=== PATIENT | female | born 1985 | race Asian ===

== ENCOUNTER 2017-06-12 00:45 | Inpatient (IN) | payer SELFPAY ==
[~2017-06-12] VITALS: Ht 159 cm; Wt 59.0 kg
[2017-06-12] MEDS ORDERED: LACTATED RINGERS 1,000 ML IV SCH (02:27)
[2017-06-12 02:35] VITALS: BP 96/66
[2017-06-12] MEDS ORDERED: PNV1TABL8 PO (02:38)
[2017-06-12] MEDS ORDERED: INFLUENZA VIRUS VACCINE QUAD 0.5 ML SYR IMVAC SCH (02:40)
[2017-06-12 02:56] LABS: APPEARANCE,URINE SL CLOUDY (CLEAR); BILIRUBIN,URINE NEGATIVE (NEGATIVE); BLOOD, URINE NEGATIVE (NEGATIVE); COLOR,URINE YELLOW (YELLOW); LEUKOCYTE ESTERASE ,URINE NEGATIVE (NEGATIVE); NITRITE, URINE NEGATIVE (NEGATIVE); PH,URINE 7.5 (5.0-9.0); UGLUCOSE NEGATIVE (NEGATIVE)
[2017-06-12 02:58] LABS: BASOPHILS # (AUTO) 0.2 K/uL (0.00-0.22); BASOPHILS % (AUTO) 1.8 % (0.0-2.0); EOSINOPHILS # (AUTO) 0.4 K/uL (0-0.4); EOSINOPHILS % (AUTO) 4.6 % (0.0-4.0); HEMATOCRIT 35.1 % (36-48); HEMOGLOBIN 11.1 g/dL (12.0-16.0); LYMPHOCYTES # (AUTO) 1.8 K/uL (2.5-16.5); LYMPHOCYTES % (AUTO) 19.6 % (20.5-51.1); MEAN CORPUSCULAR HEMOGLOBIN 29 pg (27-31); MEAN CORPUSCULAR HGB CONC 32 g/dL (33-37); MEAN CORPUSCULAR VOLUME 91 fL (80-94); MONOCYTES # (AUTO) 0.5 K/uL (0.8-1.0); MONOCYTES % (AUTO) 4.9 % (1.7-9.3); NEUTROPHILS # (AUTO) 6.3 K/uL (1.8-7.7); NEUTROPHILS % (AUTO) 69.1 % (42.2-75.2); PLATELET COUNT (AUTO) 199 K/uL (140-450); RED BLOOD CELL COUNT(AUTO) 3.88 MIL/uL (4.20-5.40); WHITE BLOOD COUNT (AUTO) 9.2 K/uL (4.8-10.8)
[2017-06-12 03:05] LABS: ALBUMIN 2.6 g/dL (3.4-5.0); ANION GAP 11.5 (8-16); CARBON DIOXIDE 26.5 mmol/L (21-32); CREATININE 0.5 mg/dL (0.6-1.3); TOTAL BILIRUBIN 0.6 mg/dL (0.0-1.0)
[2017-06-12] MEDS ORDERED: ePHEDrine 50 MG/ML VIAL IV ONE (05:55)
[2017-06-12] MEDS ORDERED: ONDANSETRON 4 MG/2 ML VIAL IVP ONE (05:55)
[2017-06-12] MEDS ORDERED: METHYLERGONOVINE 0.2 MG/ML AMP ONE (05:58)
[2017-06-12] MEDS ORDERED: TRIAMCINOLONE 10 MG/ML 5ML VIAL ONE (05:58)
[2017-06-12] MEDS ORDERED: OXYTOCIN 10 UNITS/ML VIAL ONE (05:58)
[2017-06-12] MEDS ORDERED: CITRIC ACID/SODIUM CITRATE 30 ML UDC ONE ×2 (06:08→06:10)
[2017-06-12] MEDS ORDERED: ceFAZolin 1,000 MG VIAL IVP ONE (06:10)
[2017-06-12] MEDS ORDERED: ceFAZolin 1,000 MG VIAL ONE (06:11)
[2017-06-12] MEDS ORDERED: MIDAZOLAM 2 MG/2 ML VIAL ONE (06:11)
[2017-06-12] MEDS ORDERED: KETAMINE 500 MG/5 ML VIAL ONE (06:11)
[2017-06-12] MEDS ORDERED: fentaNYL 0.05 MG/ML VIAL ONE (06:11)
[2017-06-12] MEDS ORDERED: MORPHINE PRES FREE 10 MG/10 ML AMP IV ONE (06:12)
[2017-06-12] MEDS ORDERED: TRIMETHOBENZAMIDE 200 MG/2 ML SYR IM PRN (06:45)
[2017-06-12] MEDS ORDERED: oxyCODONE/APAP 5/325 MG 1 TAB TAB PO PRN (06:45)
[2017-06-12] MEDS ORDERED: HYDROcodone/APAP 5/325 MG 1 TAB TAB PO PRN (06:45)
[2017-06-12] MEDS ORDERED: MEASLES, MUMPS, AND RUBELLA 1 VIAL SQVAC PRN (06:45)
[2017-06-12] MEDS ORDERED: SIMETHICONE 80 MG TAB.CHEW PO PRN (06:45)
[2017-06-12] MEDS ORDERED: TEMAZEPAM 15 MG CAP PO PRN (06:45)
[2017-06-12] MEDS ORDERED: METHYLERGONOVINE 0.2 MG/ML AMP IM PRN (06:45)
[2017-06-12] MEDS ORDERED: diphenhydrAMINE 50 MG/ML VIAL IVP PRN (06:50)
[2017-06-12] MEDS ORDERED: KETOROLAC 30 MG/ML VIAL IVP PRN (06:50)
[2017-06-12] MEDS ORDERED: ONDANSETRON 4 MG/2 ML VIAL IVP PRN (06:50)
--- NOTE | 2017-06-12 10:25 | NUR ---
PATIENT HAS BEEN SCREENED AND CATEGORIZED LOW NUTRITION RISK. PATIENT WILL BE SEEN WITHIN 7 DAYS OF ADMISSION. 06/18/[address]
[2017-06-12] MEDS: OXYTOCIN 20 UNITS in LACTATED RINGERS 1,000 ML IV SCH ×2 (14:35→19:30)
[2017-06-12 14:58] LABS: RAPID PLASMA REAGIN NON-REACTIVE (Non Reactiv)
[2017-06-12] MEDS ORDERED: DOCUSATE SOD/SENNA 50/8.6 MG 1 TAB PO SCH (21:00)
[2017-06-13 06:44] LABS: BASOPHILS # (AUTO) 0.1 K/uL (0.00-0.22); BASOPHILS % (AUTO) 0.4 % (0.0-2.0); EOSINOPHILS # (AUTO) 0.1 K/uL (0-0.4); EOSINOPHILS % (AUTO) 0.8 % (0.0-4.0); HEMATOCRIT 27.9 % (36-48); HEMOGLOBIN 9.2 g/dL (12.0-16.0); LYMPHOCYTES % (AUTO) 6.4 % (20.5-51.1); MEAN CORPUSCULAR HEMOGLOBIN 30 pg (27-31); MEAN CORPUSCULAR HGB CONC 33 g/dL (33-37); MEAN CORPUSCULAR VOLUME 90 fL (80-94); MONOCYTES # (AUTO) 0.6 K/uL (0.8-1.0); MONOCYTES % (AUTO) 4.2 % (1.7-9.3); NEUTROPHILS # (AUTO) 13.2 K/uL (1.8-7.7); NEUTROPHILS % (AUTO) 88.2 % (42.2-75.2); PLATELET COUNT (AUTO) 187 K/uL (140-450); RED CELL DISTRIBUTION WIDTH 18.1 % (11.6-13.7)
[2017-06-13] MEDS: IBUPROFEN 800 MG TAB PO PRN (18:57)
[2017-06-15] MEDS: IBUPROFEN 800 MG TAB PO PRN (00:09)
== END 2017-06-15 10:35 | disposition home or self-care (01) | DRG 766 ==
LOC: MLD 00:45 → MFCC 08:08
PROVIDERS: ADMIT Obstetrics & Gynecology; ATTEND Obstetrics & Gynecology
PROC: 10D00Z1 Extraction of Products of Conception, Low, Open Approach (ICD-10-PCS; principal; 2017-06-12 06:00)
DX: O69.1XX0 Labor and delivery complicated by cord around neck, with compression, not applicable or unspecified (principal); O89.4 Spinal and epidural anesthesia-induced headache during the puerperium; Z28.21 Immunization not carried out because of patient refusal; Z37.0 Single live birth; Z3A.38 38 weeks gestation of pregnancy
CPT/HCPCS: 36415; 80053; 81003; 85025; 86592; 86886; 86900; 86901; J0690; J1200; J1885; J2210; J2250; J2270; J2405; J2590; J3010; J3301; J7060; J7120